=== PATIENT | male | born 1990 | race Two or more races ===

== ENCOUNTER 2019-11-04 12:50 | Emergency (ER) | payer OTHER ==
[2019-11-04 13:28] VITALS: BP 101/94; PULSE 64; TEMP 98.4; BMI 21.5
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
[2019-11-04] MEDS ORDERED: DIPHTH,PERTUSS(ACELL),TET 0.5 ML DISP.SYRIN IM ONE ×2 (13:53→14:23)
[2019-11-04] MEDS ORDERED: ACETAMINOPHEN 500 MG TABLET (FP) PO ONE (13:53)
[2019-11-04] MEDS ORDERED: ALBUTEROL SO4 2.5/IPRATROPIUM 0.5 INH SOL 3 ML VIAL.NEB. NEB ONE ×3 (13:53→14:23)
[2019-11-04] MEDS ORDERED: ACETAMINOPHEN 325 MG TABLET (FP) ONE (14:23)
--- NOTE | 2019-11-04 15:06 | PDOC ---
Documentation entered by Janes Sellers SCRIBE, acting as scribe for Janak Valera MD. Janak Valera MD: This documentation has been prepared by the Verito acevedo Nirvannie, SCRIBE, under my direction and personally reviewed by me in its entirety. I confirm that the documentation accurately reflects all work, treatment, procedures, and medical decision making performed by me. Attending Attestation - Resident Resident Name: Lavern Quintana - ED Attending Attestation I have performed the following: I have examined & evaluated the patient, The case was reviewed & discussed with the resident, I agree w/resident's findings & plan, Exceptions are as noted - HPI HPI: 11/04/19 14:40 CC: Shortness of breath, rib pain, and cough HPI: The patient is a 28 year old male, with a significant past medical history of asthma, pneumothorax, who presents to the emergency department with 2 weeks of shortness of breath and cough and recent fall with rib pain. As per patient, he recently fell off of a bar stool and subsequently since been experiencing shortness of breath and rib pain. Allergies: Shellfish - Physicial Exam PE: 11/04/19 15:05 Vitals: Triage Vital signs reviewed General Appearance: No acute distress, well nourished well developed, Cardiac: Regular rate and rhythym, no murmurs, no rubs, no gallops, Lungs: Clear to auscultation bilateral, good air movement bilaterally, Abdomen: Soft, non distended, normal bowel sounds, non tender to palpation Extremities: Full range of motion to all extremities, no cyanosis, clubbing, or edema Skin: Warm and dry, no rashes or lesions, no rash, no petechiae Psych: Normal mood, normal affect - Medical Decision Making 11/04/19 14:41 28 year old male, with a significant past medical history of asthma, pneumothorax, who presents to the emergency department with 2 weeks of shortness of breath and cough and recent fall with rib pain. Plan is: CXR Rib xray EKG Tetanus Albuterol Tylenol 11/04/19 15:02 20 years old past medical history significant for asthma, pneumothorax presents to the emergency department 2-week history of cough and wheezing recent mechanical fall with rib pain given history of pneumothorax patient was concerned Symptoms are mild to moderate persistent constant no exacerbating relieving factors. He received duo nebs in the emergency department his chest x-ray shows no acute pneumothorax he feels much better after DuoNeb's We will discharge home with new [facility] MDI and 3-day course of prednisone Findings, the need for follow-up and strict return instruction discussed with patient.
--- NOTE | 2019-11-04 16:04 | EKG ---
Test Reason : Blood Pressure : / mmHG Vent. Rate : 050 BPM Atrial Rate : 050 BPM P-R Int : 192 ms QRS Dur : 088 ms QT Int : 440 ms P-R-T Axes : 061 083 071 degrees QTc Int : 401 ms SINUS BRADYCARDIA OTHERWISE NORMAL ECG NO PREVIOUS ECGS AVAILABLE Confirmed by ELEONORA BURCIAGA MD ([id number]) on 11/04/2019 4:04:12 PM Referred By: Confirmed By:ELEONORA BURCIAGA MD
== END 2019-11-04 15:45 | disposition home or self-care (01) ==
LOC: JER 12:50
PROC: 3E0234Z Introduction of Serum, Toxoid and Vaccine into Muscle, Percutaneous Approach (ICD-10-PCS; principal; 2019-11-04)
PROC: 3E0F7GC Introduction of Other Therapeutic Substance into Respiratory Tract, Via Natural or Artificial Opening (ICD-10-PCS; 2019-11-04)
PROC: 3E0F7GC Introduction of Other Therapeutic Substance into Respiratory Tract, Via Natural or Artificial Opening (ICD-10-PCS; 2019-11-04)
DX: J45.909 Unspecified asthma, uncomplicated (principal); S20.212A Contusion of left front wall of thorax, initial encounter; W01.190A Fall on same level from slipping, tripping and stumbling with subsequent striking against furniture, initial encounter; Y93.89 Activity, other specified; Y92.89 Other specified places as the place of occurrence of the external cause; Y99.0 Civilian activity done for income or pay; Z87.828 Personal history of other (healed) physical injury and trauma; F17.210 Nicotine dependence, cigarettes, uncomplicated
CPT/HCPCS: 71046-TC-FY; 71101-TC-LT-FY; 90471; 90715; 93005; 93010; 94640; 99284-25

== ENCOUNTER 2020-09-24 18:20 | Emergency (ER) | payer OTHER ==
[2020-09-24 18:29] VITALS: BP 139/79; PULSE 62; TEMP 98.1; BMI 24.0
[2020-09-24] MEDS ORDERED: KETOROLAC TROMETHAMINE 60 MG/2 ML VIAL IM ONE (18:48)
[2020-09-24] MEDS ORDERED: KETOROLAC TROMETHAMINE 60 MG/2 ML VIAL ONE (18:49)
== END 2020-09-24 18:58 | disposition home or self-care (01) ==
LOC: JERFT 18:20
PROC: 3E0233Z Introduction of Anti-inflammatory into Muscle, Percutaneous Approach (ICD-10-PCS; principal; 2020-09-24)
DX: K08.89 Other specified disorders of teeth and supporting structures (principal); K02.9 Dental caries, unspecified
CPT/HCPCS: 99284-25

== ENCOUNTER 2021-09-07 08:51 | Emergency (ER) | payer OTHER ==
[2021-09-07 09:05] VITALS: BP 125/73; PULSE 86; TEMP 98.4; BMI 24.3
[2021-09-07] MEDS ORDERED: KETOROLAC TROMETHAMINE 60 MG/2 ML VIAL IM ONE (09:15)
[2021-09-07] MEDS ORDERED: KETOROLAC TROMETHAMINE 60 MG/2 ML VIAL ONE (09:19)
== END 2021-09-07 09:39 | disposition home or self-care (01) ==
LOC: JERFT 08:51
PROC: 3E0233Z Introduction of Anti-inflammatory into Muscle, Percutaneous Approach (ICD-10-PCS; principal; 2021-09-07)
DX: S39.012A Strain of muscle, fascia and tendon of lower back, initial encounter (principal)
CPT/HCPCS: 99283-25

== ENCOUNTER 2022-10-29 17:21 | Emergency (ER) | payer OTHER ==
[2022-10-29 18:00] VITALS: BP 94/62; PULSE 84; RESP 16; TEMP 98; BMI 21.5
[2022-10-29] MEDS ORDERED: KETOROLAC TROMETHAMINE 30 MG/1 ML VIAL IM ONE (19:22)
[2022-10-29] MEDS ORDERED: KETOROLAC TROMETHAMINE 30 MG/1 ML VIAL ONE (19:25)
== END 2022-10-29 20:11 | disposition home or self-care (01) ==
LOC: JERFT 17:21 → JER 17:21 → JERFT 20:11
PROC: 3E023GC Introduction of Other Therapeutic Substance into Muscle, Percutaneous Approach (ICD-10-PCS; principal; 2022-10-29)
DX: M54.2 Cervicalgia (principal); M54.50 Low back pain, unspecified; V19.40XA Pedal cycle driver injured in collision with unspecified motor vehicles in traffic accident, initial encounter
CPT/HCPCS: 70450-TC; 72125-TC; 72131-TC; 99284-25

== ENCOUNTER 2024-02-22 08:48 | Emergency (ER) | payer OTHER ==
[2024-02-22 09:01] VITALS: BP 116/69; PULSE 76; RESP 18; TEMP 98; BMI 22.4
[2024-02-22] MEDS ORDERED: ACETAMINOPHEN 500 MG TABLET (FP) ONE (09:34)
[2024-02-22] MEDS: ACETAMINOPHEN 500 MG TABLET (FP) PO ONE (09:35)
== END 2024-02-22 09:59 | disposition home or self-care (01) ==
LOC: JER 08:48
DX: M25.512 Pain in left shoulder (principal); M54.6 Pain in thoracic spine; V89.2XXA Person injured in unspecified motor-vehicle accident, traffic, initial encounter; Y92.410 Unspecified street and highway as the place of occurrence of the external cause
CPT/HCPCS: 73030-TC-LT-FY; 99283-25